=== PATIENT | male | born 1985 | race Caucasian/White ===

== ENCOUNTER 2025-05-16 08:57 | Outpatient (CLI) | payer BC | END 2025-05-16 08:58 | disposition home or self-care (01) | LOC: CSHSLEEP 08:57 | PROVIDERS: ATTEND Internal Medicine | DX: G47.33 Obstructive sleep apnea (adult) (pediatric) (principal); R07.89 Other chest pain; I73.9 Peripheral vascular disease, unspecified | CPT/HCPCS: 95810 ==